=== PATIENT | male | born 1985 | race African-American/Black ===

== ENCOUNTER 2019-07-13 13:51 | Emergency (ER) | payer SELFPAY ==
[2019-07-13] MEDS ORDERED: Ketorolac 60 MG/2 ML SDV IM ONE (14:50)
--- NOTE | 2019-07-13 16:17 | EDM.PDOC ---
ED HPI GENERAL MEDICAL PROBLEM - General Chief Complaint: General Stated Complaint: TINGLING FEELING IN ENTIRE LEFT SIDE Time Seen by Provider: 07/13/19 15:05 Source of Information: Reports: Patient History Limitations: Reports: No Limitations - History of Present Illness INITIAL COMMENTS - FREE TEXT/NARRATIVE: Patient is a 33 y.o male who presents to the E.D. complaining of left sided neck pain and mild tingling down his left arm/hand, pain down the left side of his back and mild pain down his left leg. States he does not recall any specific trauma or activity that may have precipitated this. States last night he awoke with the pain at 0200 hrs. He was passed out after consuming large amounts of alcohol, marijuana, and ecstasy. States this is not unusual for him. He was evaluated at the [facility] Emergency Room with testing completed. States all these symptoms come and go. He is here for 2nd opinion. Left Arm Pain Score (Numeric/FACES): 6 - Related Data Allergies Allergy/AdvReac Type Severity Reaction Status Date / Time No Known Allergies Allergy Verified 07/13/19 14:01 Home Meds: Home Meds . [No Known Home Meds] 07/13/19 [History] Past Medical History - Past Health History Medical/Surgical History: Denies Medical/Surgical History Social & Family History - Tobacco Use Smoking Status *Q: Current Every Day Smoker Years of Tobacco use: 20 Packs/Tins Daily: 1 - Caffeine Use Caffeine Use: Reports: None - Recreational Drug Use Recreational Drug Use: Yes Recreational Drug Type: Reports: Ecstasy, Marijuana/Hashish ED ROS GENERAL - Review of Systems Review Of Systems: See Below Constitutional: Denies: Fever, Chills, Malaise, Weakness, Fatigue, Diaphoresis, Decreased Appetite HEENT: Denies: Sinus Problem, Throat Pain, Throat Swelling, Vision Change Respiratory: Denies: Shortness of Breath, Wheezing, Pleuritic Chest Pain, Cough , Sputum, Hemoptysis Cardiovascular: Denies: Chest Pain, Dyspnea on Exertion, Edema, Lightheadedness , Orthopnea, Palpitations, PND, Syncope GI/Abdominal: Denies: Abdominal Pain, Decreased Appetite, Difficulty Swallowing , Hematemesis, Nausea, Vomiting Musculoskeletal: Denies: Shoulder Pain, Back Pain (currently), Hand Pain, Leg Pain (currently) Neurological: Denies: Confusion, Dizziness, Headache, Numbness (currently), Paresthesia (currently), Pre-Existing Deficit, Seizure, Syncope, Tingling ( currently), Trouble Speaking, Difficulty Walking, Weakness Psychiatric: Reports: No Symptoms Hematologic/Lymphatic: Reports: No Symptoms ED EXAM, GENERAL - Physical Exam Exam: See Below Exam Limited By: No Limitations General Appearance: Alert, WD/WN, No Apparent Distress Eye Exam: Bilateral Eye: EOMI, Normal Inspection, Nystagmus (none noted), PERRL Ears: Normal External Exam, Normal Canal, Hearing Grossly Normal, Normal TMs Nose: Normal Inspection, Normal Mucosa, No Blood Throat/Mouth: Normal Inspection, Normal Oropharynx, Normal Voice, No Airway Compromise Head: Atraumatic, Normocephalic Neck: Normal Inspection, Supple, Non-Tender, Full Range of Motion. No: Lymphadenopathy (L), Lymphadenopathy (R), Tender Lateral, Tender Midline Respiratory/Chest: No Respiratory Distress, Lungs Clear, Normal Breath Sounds, No Accessory Muscle Use, Chest Non-Tender Cardiovascular: Normal Peripheral Pulses, Regular Rate, Rhythm, No Murmur Peripheral Pulses: 2+: Radial (L), Radial (R) GI/Abdominal: Normal Bowel Sounds, Soft, Non-Tender, No Organomegaly, No Distention Back Exam: Normal Inspection, Full Range of Motion. No: CVA Tenderness (L), CVA Tenderness (R) Extremities: Normal Inspection, Normal Range of Motion, Non-Tender, No Pedal Edema Neurological: Alert, Oriented, CN II-XII Intact, Normal Cognition, Normal Gait, No Motor/Sensory Deficits Psychiatric: Normal Affect, Normal Mood Skin Exam: Warm, Dry, Intact, Normal Color, No Rash Course - Vital Signs Last Recorded V/S: Last Vital Signs Temp 97.3 F 07/13/19 13:58 Pulse 71 07/13/19 13:58 Resp 16 07/13/19 13:58 BP 125/70 07/13/19 13:58 Pulse Ox 99 07/13/19 13:58 - Orders/Labs/Meds Labs: Laboratory Tests 07/13/19 Range/Units 15:10 Sodium 136 (136-145) mEq/L Potassium 4.1 (3.5-5.1) mEq/L Chloride 98 (98-107) mEq/L Carbon Dioxide 27 (21-32) mEq/L Anion Gap 15.1 H (5-15) BUN 19 H (7-18) mg/dL Creatinine 1.2 (0.7-1.3) mg/dL Est Cr Clr Drug Dosing 96.10 mL/min Estimated GFR (MDRD) > 60 (>60) mL/min BUN/Creatinine Ratio 15.8 (14-18) Glucose 103 (74-106) mg/dL Calcium 9.3 (8.5-10.1) mg/dL Total Bilirubin 0.5 (0.2-1.0) mg/dL AST 26 (15-37) U/L ALT 34 (16-63) U/L Alkaline Phosphatase 102 (46-116) U/L Creatine Kinase 353 H (39-308) U/L Total Protein 8.2 (6.4-8.2) g/dl Albumin 4.3 (3.4-5.0) g/dl Globulin 3.9 gm/dL Albumin/Globulin Ratio 1.1 (1-2) Meds: Medications Discontinued Medications Generic Name Dose Route Start Last Admin Trade Name Viridiana PRN Reason Stop Dose Admin Ketorolac Tromethamine 60 mg 07/13/19 14:50 07/13/19 15:18 Toradol IM 07/13/19 14:51 Not Given ONETIME ONE - Re-Assessments/Exams Free Text/Narrative Re-Assessment/Exam: VSS. On exam patient had no concerning findings. He admitted to a night of heavy drinking and use of ecstacy/marijuana. Patient had a CXR of obtained with no acute findings. CT of the head with no evidence for acute intracranial abnormality. Troponin WWNL. CMP that was essentially normal. CK of 901 elevated. Drug Screen positive for amphetamines and marijuana. CBC essentially normal. Ddimer WNL. EKG: SR with early repolarization pattern. Patient is requesting a pain medication although on exam he had no complaints. I have offered to recheck his CMP, CPK, UA to check specific gravity and proteins, and administration of IVF's. Offered toradol to which the patient agreed. 07/13/19 16:17 Went to reassess patient. He Eloped. Departure - Departure Time of Disposition: 16:17 Disposition: Eloped 07 Condition: Good Clinical Impression: Eloped from emergency department - Discharge Information Referrals: PCP,None [Primary Care Provider] - Forms: ED Department Discharge
== END 2019-07-13 16:15 | disposition left against medical advice (07) ==
LOC: JD.ED 13:51
DX: M54.2 Cervicalgia (principal); R20.2 Paresthesia of skin; F17.210 Nicotine dependence, cigarettes, uncomplicated
CPT/HCPCS: 36415; 80053; 82550; 99283; 99284